=== PATIENT | female | born 1950 | race Caucasian/White ===

== ENCOUNTER 2016-10-15 13:42 | Emergency (ER) | payer MEDICARE ==
[~2016-10-15] VITALS: Ht 154.9 cm; Wt 88.8 kg
[2016-10-15 13:46] VITALS: BP 95/49; PULSE 92; RESP 18; TEMP 99.5; O2SAT 94
[2016-10-15] MEDS ORDERED: TELM1TAB31 PO (14:56)
[2016-10-15] MEDS ORDERED: LEVO137T2 PO (14:56)
[2016-10-15] MEDS ORDERED: METHPOW PO (14:56)
[2016-10-15] MEDS ORDERED: METO50TA PO (14:56)
[2016-10-15] MEDS ORDERED: MONT10TA4 PO (14:56)
[2016-10-15] MEDS ORDERED: HUMI40KI2 SQ (14:58)
[2016-10-15] MEDS ORDERED: ATOR40TA16 PO (14:58)
[2016-10-15] MEDS ORDERED: DULO1CAP3 PO (14:58)
[2016-10-15] MEDS ORDERED: FOLI5CAP PO (14:58)
[2016-10-15] MEDS ORDERED: RANI300T PO (14:58)
[2016-10-15] MEDS ORDERED: LORA10TA PO (14:58)
[2016-10-15] MEDS ORDERED: RESP: ALBUTEROL 2.5 MG/IPRATROPIUM 0.5 MG NEB (SCH) NEB ONE (15:15)
[2016-10-15 15:22] VITALS: O2SAT 94
[2016-10-15 15:27] LABS: AUTOMATED NEUTROPHIL # 4.2 TH/MM3 (1.8-7.7); BASOPHIL % 0.2 % (0.0-2.0); EOSINOPHIL # 0.1 TH/MM3 (0-0.4); EOSINOPHIL % 1.2 % (0.0-4.0); HEMATOCRIT 35.2 % (35.0-46.0); HEMO FLAGS DIFF FINAL; LYMPH % 25.1 % (9.0-44.0); LYMPHOCYTE # 1.9 TH/MM3 (1.0-4.8); MEAN CELL VOLUME 103.4 FL (80.0-100.0); MEAN CORPUSCULAR HEMOGLOBIN 34.6 PG (27.0-34.0); MEAN CORPUSCULAR HGB CONC 33.4 % (32.0-36.0); MONO % 19.3 % (0.0-8.0); NEUT % 54.2 % (16.0-70.0); PLATELET COUNT 316 TH/MM3 (150-450); RED BLOOD COUNT 3.41 MIL/MM3 (4.00-5.30); RED CELL DISTRIBUTION WIDTH 14.2 % (11.6-17.2); WHITE BLOOD COUNT 7.7 TH/MM3 (4.0-11.0)
[2016-10-15 15:36] LABS: CHLORIDE 105 MEQ/L (98-107); POTASSIUM 3.5 MEQ/L (3.5-5.1); SODIUM (NA) 142 MEQ/L (136-145)
[2016-10-15 15:39] LABS: ANION GAP 9 MEQ/L (5-15); BICARBONATE 27.7 MEQ/L (21.0-32.0); BLOOD UREA NITROGEN 13 MG/DL (7-18)
--- NOTE | 2016-10-15 15:39 | PD ---
HPI Chief Complaint: Cold / Flu Symptoms Time Seen by Provider: 15:00 Travel History International Travel<30 days: No Contact w/Intl Traveler<30days: No Traveled to known affect area: No History of Present Illness HPI Patient is a 66-year-old female who presents emergency department for evaluation of shortness of breath, fatigue, cough. Patient's symptoms have been ongoing for approximately 2 weeks. She also reports low-grade fevers. Patient denies any history of COPD or asthma. She states it taking Delsym for the cough and fluticasone nasal spray and loratadine for the nasal congestion. Patient reports being on Humira and methotrexate for psoriatic arthritis. Patient states that she gets short of breath with exertion PFSH Past Medical History Arthritis: Yes (psoriatic) Depression: Yes High Cholesterol: Yes Diminished Hearing: No GERD: Yes Hypertension: Yes Thyroid Disease: Yes Influenza Vaccination: Yes ?: Not Past Surgical History Abdominal Surgery: Yes (HERNIA) Social History Alcohol Use: No Tobacco Use: No Allergies-Medications (Allergen,Severity, Reaction): Coded Allergies: Amoxicillin (Verified Allergy, Intermediate, GI UPSET, 10/15/16) Codeine (Verified Allergy, Intermediate, GI UPSET, 10/15/16) Reported Meds & Prescriptions Reported Meds & Active Scripts Active Reported Loratadine 10 Mg Tab 10 Mg PO DAILY Humira Pen 2-Pack Inj (Adalimumab Pen 2-Pack Inj) 40 Mg/0.8 Ml Pen 40 Mg SQ Q14D Maintenance dosing. Folic Acid 5 Mg Cap 5 Mg PO DAILY Atorvastatin (Atorvastatin Calcium) 40 Mg Tab 40 Mg PO HS Duloxetine DR (Duloxetine HCl) 60 Mg Capdr 60 Mg PO DAILY Ranitidine (Ranitidine HCl) 300 Mg Tab 300 Mg PO HS Levothyroxine (Levothyroxine Sodium) 137 Mcg Tab 137 Mcg PO DAILY Montelukast (Montelukast Sodium) 10 Mg Tab 10 Mg PO HS Telmisartan-Amlodipine 80-5 Mg Tab 1 Tab PO DAILY Methotrexate 1 Pow Pow 20 Mg PO WEEKLY Metoprolol Tartrate 50 Mg Tab 50 Mg PO BID Review of Systems Except as stated in HPI: all other systems reviewed are Neg General / Constitutional: Positive: Fever, Other (fatigue) HENT: Positive: Congestion, No: Headaches, Lightheadedness Cardiovascular: Positive: Dyspnea on exertion, No: Chest Pain or Discomfort Respiratory: Positive: Cough, Shortness of Breath Gastrointestinal: No: Nausea, Vomiting, Diarrhea, Abdominal Pain Musculoskeletal: No: Myalgias Physical Exam Narrative GENERAL: Well developed, well-nourished, alert female. Resting comfortably in no acute distress. SKIN: Warm and dry. HEAD: Atraumatic. Normocephalic. EYES: Pupils equal and round. No scleral icterus. No injection or drainage. ENT: No nasal bleeding or discharge. Mucous membranes pink and moist. NECK: Trachea midline. No JVD. CARDIOVASCULAR: Regular rate and rhythm. No murmur appreciated. RESPIRATORY: No accessory muscle use. Clear to auscultation. Breath sounds equal bilaterally. GASTROINTESTINAL: Abdomen soft, non-tender, nondistended. Hepatic and splenic margins not palpable. MUSCULOSKELETAL: No obvious deformities. No clubbing. No cyanosis. No edema. NEUROLOGICAL: Awake and alert. No obvious cranial nerve deficits. Motor grossly within normal limits. Normal speech. PSYCHIATRIC: Appropriate mood and affect; insight and judgment normal. Data Data Last Documented VS Vital Signs Date Time Temp Pulse Resp B/P Pulse Ox O2 Delivery O2 Flow Rate FiO2 10/15/16 16:30 98.8 88 20 99/58 95 Orders Complete Blood Count With Diff (10/15/16 15:05) Comprehensive Metabolic Panel (10/15/16 15:05) Lactic Acid Sepsis Protocol (10/15/16 15:05) Blood Culture (10/15/16 15:05) Pneumococcal Urinary Antigen (10/15/16 15:05) Legionella Urinary Antigen (10/15/16 15:05) Chest, Pa & Lat (10/15/16 15:05) Blood Glucose (10/15/16 15:05) Ecg Monitoring (10/15/16 15:05) Iv Access Insert/Monitor (10/15/16 15:05) Oximetry (10/15/16 15:05) Oxygen Administration (10/15/16 15:05) Albuterol-Ipratropium Neb (Duoneb Neb) (10/15/16 15:15) Labs Laboratory Tests Test 10/15/16 10/15/16 15:10 15:15 White Blood Count 7.7 TH/MM3 Red Blood Count 3.41 MIL/MM3 Hemoglobin 11.8 GM/DL Hematocrit 35.2 % Mean Corpuscular Volume 103.4 FL Mean Corpuscular Hemoglobin 34.6 PG Mean Corpuscular Hemoglobin 33.4 % Concent Red Cell Distribution Width 14.2 % Platelet Count 316 TH/MM3 Mean Platelet Volume 7.3 FL Neutrophils (%) (Auto) 54.2 % Lymphocytes (%) (Auto) 25.1 % Monocytes (%) (Auto) 19.3 % Eosinophils (%) (Auto) 1.2 % Basophils (%) (Auto) 0.2 % Neutrophils # (Auto) 4.2 TH/MM3 Lymphocytes # (Auto) 1.9 TH/MM3 Monocytes # (Auto) 1.5 TH/MM3 Eosinophils # (Auto) 0.1 TH/MM3 Basophils # (Auto) 0.0 TH/MM3 CBC Comment DIFF FINAL Differential Comment Sodium Level 142 MEQ/L Potassium Level 3.5 MEQ/L Chloride Level 105 MEQ/L Carbon Dioxide Level 27.7 MEQ/L Anion Gap 9 MEQ/L Blood Urea Nitrogen 13 MG/DL Creatinine 1.30 MG/DL Estimat Glomerular Filtration 41 ML/MIN Rate Random Glucose 113 MG/DL Calcium Level 8.7 MG/DL Total Bilirubin 0.4 MG/DL Aspartate Amino Transf 26 U/L (AST/SGOT) Alanine Aminotransferase 26 U/L (ALT/SGPT) Alkaline Phosphatase 101 U/L Total Protein 6.5 GM/DL Albumin 3.0 GM/DL Lactic Acid Level 1.1 mmol/L [facility] Medical Decision Making Medical Screen Exam Complete: Yes Emergency Medical Condition: Yes Interpretation(s) Vital Signs Date Time Temp Pulse Resp B/P Pulse Ox O2 Delivery O2 Flow Rate FiO2 10/15/16 15:22 94 10/15/16 14:53 16 10/15/16 13:46 99.5 92 18 95/49 94 Differential Diagnosis Pneumonia versus bronchitis versus viral syndrome versus allergic rhinitis versus other Narrative Course Patient is a 66-year-old female who presented to emergency department for evaluation of shortness of breath, congestion or fevers. Patient appears nontoxic. Patient is immunosuppressed on Humira and methotrexate for psoriatic arthritis she reports a history of pneumonia. On initial presentation she has a mild elevation in temperature, a blood pressure is mildly hypotensive, and oxygen saturation is 94% on room air. Labs and imaging were ordered and pending. Patient given DuoNeb 1. Patient reports some improvement with the DuoNeb treatment. CBC was unremarkable, chemistry with mildly of a creatinine at 1.3, lactic acid is normal. Blood cultures and urine for Legionella and pneumococcal antigen is pending. Chest x-ray shows no acute disease. Patient continues to remain mildly hypotensive, she reports her blood pressure normally runs in the 120s systolic. She is 95% on room air read discussed with my attending physician, patient is high risk for infection due to immunosuppression with Humira and methotrexate. Patient would rather go home, she was given strict return precautions. She was advised to return to emergency department in 24-48 hours if her symptoms did not begin to improve. Patient is accompanied by her , they both agreed and verbalizes understanding of need for follow-up. Patient does not have a primary care provider in the area as they are [place]. Patient is stable for discharge. Diagnosis Primary Impression: Acute bronchitis Qualified Code: J20.9 - Acute bronchitis, unspecified organism Referrals: Primary Care Physician Patient Instructions: Acute Bronchitis (ED), General Instructions Additional Instructions: Return to emergency department immediately for any new or worsening symptoms Return to emergency department in 48 hours if no improvement in symptoms for reevaluation Take medications as directed Med/Other Pt SpecificInfo: Prescription(s) given Scripts Benzonatate (Tessalon Perles)100 Mg [id number] Mg PO TID PRN (COUGH) 5 Days Ref 0 Prov:Ann Garvey 10/15/16 Levofloxacin (Levaquin)750 Mg [id number] Mg PO DAILY 5 Days Ref 0 Prov:Ann Garvey 10/15/16 Albuterol 18 GM Inh (Ventolin Hfa 18 GM Inh)90 Mcg/Act Aer2 Puff INH Q4-6H PRN ( SHORTNESS OF BREATH) #1 INHALER Ref 0 Prov:Ann Garvey 10/15/16 Disposition: 01 DISCHARGE HOME Condition: Stable Ann Garvey Oct 15, 2016 15:38
[2016-10-15 15:42] LABS: ALT (GPT) 26 U/L (10-53); AST (GOT) 26 U/L (15-37); GLOMERULAR FILTRATION RATE 41 ML/MIN (>89)
[2016-10-15 15:44] LABS: TOTAL BILIRUBIN ADULT 0.4 MG/DL (0.2-1.0)
[2016-10-15 15:45] LABS: ALKALINE PHOSPHATASE 101 U/L (45-117)
--- NOTE | 2016-10-15 16:10 | RADHPO ---
EXAM DATE/TIME: 10/15/2016 15:55 [facility] COMPARISON: No previous studies available for comparison. INDICATIONS : Patient states cough and shortness of breath. MEDICAL HISTORY : Hypertension. Hypercholesterolemia. SURGICAL HISTORY : None. ENCOUNTER: Initial ACUITY: 2 weeks PAIN SCORE: 0/10 LOCATION: Bilateral chest FINDINGS: The cardiac silhouette is normal in transverse diameter. The lungs are free of acute parenchymal opac ity. No effusions are identified. There is prominence of the aortic knob is with calcification charac teristic of atherosclerotic vascular disease. CONCLUSION: 1. No acute cardiopulmonary disease. Kory Shaikh MD on October 15, 2016 at 16:06 Board Certified Radiologist. This report was verified electronically.
[2016-10-15 16:30] VITALS: BP 99/58; PULSE 88; RESP 20; TEMP 98.8; O2SAT 95
[2016-10-15] MEDS ORDERED: LEVA750T PO (17:33)
[2016-10-15] MEDS ORDERED: BENZ100 PO (17:33)
[2016-10-15] MEDS ORDERED: VENTAER INH (17:33)
== END 2016-10-15 17:52 | disposition home or self-care (01) ==
LOC: PHEFT 13:42
DX: J20.9 Acute bronchitis, unspecified (principal); R05 Cough; R53.83 Other fatigue; E78.00 Pure hypercholesterolemia, unspecified; I10 Essential (primary) hypertension
CPT/HCPCS: 71020; 80053; 83605; 85025; 87040; 87449; 94664; 99283